=== PATIENT | male | born 1975 | race Caucasian/White ===

== ENCOUNTER 2022-10-16 17:42 | Emergency (ER) | payer MEDICAID ==
[2022-10-16] MEDS ORDERED: Sodium Chloride 0.9% 10 ML Syringe FLUSH PRN (17:53)
[2022-10-16] MEDS ORDERED: Levofloxacin 500 MG Tab PO ONE (18:14)
[2022-10-16] MEDS ORDERED: Levofloxacin 250 MG Tab PO ONE (18:14)
[2022-10-16] MEDS ORDERED: predniSONE 20 MG Tab PO ONE (18:15)
[2022-10-16] MEDS ORDERED: Take Home: Albuterol 18 GM Inhaler, 1 Inhaler Pack INH PRN (18:18)
== END 2022-10-16 18:32 | disposition home or self-care (01) ==
LOC: VM.ED 17:42
DX: J18.9 Pneumonia, unspecified organism (principal); F17.210 Nicotine dependence, cigarettes, uncomplicated; Z88.0 Allergy status to penicillin
CPT/HCPCS: 99284; 99285; A9270-GY; J7512

== ENCOUNTER 2022-10-19 10:13 | Emergency (ER) | payer MEDICAID | END 2022-10-19 12:10 | LOC: VM.ED 10:13 | DX: J18.9 Pneumonia, unspecified organism (principal); Z88.0 Allergy status to penicillin; Z72.0 Tobacco use | CPT/HCPCS: 71046; 93005; 93010; 99284; 99285 ==